=== PATIENT | male | born 1990 | race Caucasian/White ===

== ENCOUNTER 2016-08-15 09:30 | Day surgery (SDC) | payer OTHER ==
[~2016-08-15 09:30] MED LIST: DEXAMETHASONE SOD PHOS INJ 10 MG/1 ML VIAL ONE; FENTANYL CITRATE INJ/PF 100 MCG/2 ML AMPUL ONE; HYDROMORPHONE HCL INJ/PF 2 MG/ML AMPULE ONE; MIDAZOLAM 2 MG/2 ML INJ ONE; ONDANSETRON HCL INJ/PF 4 MG/2 ML SDV ONE; OXYMETAZOLINE HCL 0.05% NASAL SPRAY 15 ML BOTTLE ONE; PROPOFOL INJ 200 MG/20 ML VIAL IV ONE
[2016-08-15] MEDS: LIDOCAINE 1%/EPINEPHRINE INJ 20 ML VIAL ONE ×2 (10:23→11:00)
[2016-08-15] MEDS ORDERED: HYDROCODONE/ACETAMINOPHEN 5-325 MG TABLET ONE (11:52)
--- NOTE | 2016-08-15 13:43 | [facility] OPERATIVE REPORT E ---
[facility] Operative Report NAME: EYAL HAYS AGE: 26Y DATE OF SURGERY: 08/15/2016 ROOM: PREOPERATIVE DIAGNOSES: 1. Posttraumatic nasal septum deviation. 2. Inferior turbinate hypertrophy. POSTOPERATIVE DIAGNOSES: 1. Posttraumatic nasal septum deviation. 2. Bilateral inferior turbinate hypertrophy. PROCEDURES: 1. Septoplasty. 2. Submucous reduction of the inferior turbinates soft tissue. 3. Therapeutic out-fracture of bilateral inferior turbinates. SURGEON: LAURIE LOPEZ M.D. ANESTHESIA: General endotracheal. ESTIMATED BLOOD LOSS: 80 mL. COMPLICATIONS: None. INTRAOPERATIVE FINDINGS AND INDICATIONS FOR PROCEDURE: 1. Right-sided caudal nasal septum deviation with internal nasal valve narrowing. 2. Left greater than right inferior turbinate hypertrophy. INDICATIONS FOR PROCEDURE: A 26-year-old male with a history of nasal trauma and posttraumatic deformity that resulted in a developed nasal septum and corresponding functional limitation of breathing. His right side was nearly completed obstructed to nasal endoscope passage on physical examination. He did sustain a mid dorsum deformity. He was not interested in any esthetic type reconstruction, only functional. PROCEDURE IN DETAIL: The patient was met in the preop holding area where questions were answered and consent was verified. He was then brought back to the operating room and placed supine on the operating table and general endotracheal anesthesia was induced without difficulty. The nasal cavity was decongested with oxymetazoline and he was prepped and draped in a standard fashion. Appropriate timeout was performed. The nasal septum and then turbinates were infiltrated with Lidocaine 1% and 1:100,000 epinephrine. A right sided savanna transfixion incision was carried out caudally and an ipsilateral mucoperichondrial flaps were elevated carefully over the significant deviation at the caudal aspect. Once that was cleared, the cartilaginous septum was incised approximately 1 cm posterior to the caudal edge and a contralateral flap was elevated. A rectangular piece of cartilage was resected to open up working space and complete the removal of the deviated maxillary crest on the right side. The dorsal aspect was also dislocated from the ethmoid plate and resected and scored as appropriate to open up the internal nasal valve. These maneuvers opened the right-sided nasal cavity, and the resected cartilage was morselized and replaced between the flaps, which were then reapproximated with a quilting stitch of fast gut suture. The hemitransfixion incision was closed with chromic suture. The inferior turbinate reduction was then carried out by performing a small stab incision in both inferior turbinate, elevating a submucosal tunnel over the turbinate bone and carrying out a submucous reduction of the soft tissues from posterior to anterior using a 2.9 mm turbinate microdebrider blade. The turbinate bones were then out-fractured with a [place] elevator. The nasal cavity and nasopharynx were suctioned and Poole splints were placed in each nasal cavity and secured anteriorly with Prolene. He was turned over to the anesthesia team for reversal and extubation. He tolerated the procedure well. DICTATING PHYSICIAN: LAURIE LOPEZ M.D. [id number] PHY#: [id number] ID: [id number] JOB#: [id number] ACCT: [id number] cc:LAURIE LOPEZ M.D. >
== END 2016-08-15 12:31 | disposition home or self-care (01) ==
LOC: SC 09:30
PROVIDERS: ATTEND Otolaryngology
PROC: 09BM4ZZ Excision of Nasal Septum, Percutaneous Endoscopic Approach (ICD-10-PCS; 2016-08-15)
PROC: 09TL8ZZ Resection of Nasal Turbinate, Via Natural or Artificial Opening Endoscopic (ICD-10-PCS; principal; 2016-08-15 10:00)
DX: J34.2 Deviated nasal septum (principal); J34.3 Hypertrophy of nasal turbinates
CPT/HCPCS: 30520; 30140; J2250; J3490 ×2; J1170; J2405; J2704; J1100; 160; J3010